=== PATIENT | male | born 1995 | race African-American/Black ===

== ENCOUNTER 2017-02-22 12:36 | Emergency (ER) | payer SELFPAY ==
[~2017-02-22] VITALS: Ht 172.7 cm; Wt 63.0 kg
[~2017-02-22 12:36] MED LIST: ALBU1AER INH; CEPH500 PO; CLIN150 PO; IBUP-238 PO; IBUP800 PO; PRED50 PO; Z.0.NO CURRENT MEDS
[2017-02-22 12:38] VITALS: BP 141/63; PULSE 72; RESP 15; TEMP 98.2; O2SAT 98
--- NOTE | 2017-02-22 12:48 | PD ---
Physical Exam Time Seen by Provider: 12:47 Narrative 21 y/o male with 3 days R sided facial swelling/dental pain. Vital signs reviewed. Seen at triage desk. Awaiting bed placement. Data Data Last Documented VS Vital Signs Date Time Temp Pulse Resp B/P Pulse Ox O2 Delivery O2 Flow Rate FiO2 02/22/17 12:38 98.2 72 15 141/63 98 MDM Medical Record Reviewed: Yes Supervised Visit with JERAD: Julio Woods Feb 22, 2017 12:48
--- NOTE | 2017-02-22 12:53 | PD ---
HPI Chief Complaint: Oral / Dental Pain or Problem Time Seen by Provider: 12:50 Travel History International Travel<30 days: No Contact w/Intl Traveler<30days: No Traveled to known affect area: No History of Present Illness HPI 21-year-old male presents to the ED for evaluation of 3 day history of right lower dental pain and facial swelling. Gradual onset. Patient endorses broken tooth 3 years in the area. Patient denies fever, chills, nausea, vomiting, difficulty swallowing his own secretions, sore throat, ear pain. He does not have a dentist. PFSH Past Medical History Asthma: Yes Immunizations Current: Yes Social History Alcohol Use: Yes Tobacco Use: Yes Substance Use: Yes (MARIJUANA) Allergies-Medications (Allergen,Severity, Reaction): Coded Allergies: No Known Allergies (Verified , 02/22/17) Reported Meds & Prescriptions Reported Meds & Active Scripts Active Ibuprofen 800 Mg Tab 800 Mg PO Q8H Penicillin V Potassium 500 Mg Tab 500 Mg PO Q6H 7 Days Review of Systems Except as stated in HPI: all other systems reviewed are Neg Physical Exam Narrative GENERAL: Well-nourished, well-developed nontoxic-appearing black male in no acute distress.. SKIN: Focused skin assessment warm/dry. Mild to moderate swelling and tenderness of the right lower anterior jaw. HEAD: Normocephalic. EYES: No scleral icterus. No injection or drainage. ENT: Pearly patel tympanic membranes bilaterally. Oropharynx without erythema, edema or exudate. DENTAL: Tooth #30 is broken to the gum. Just lateral to this is a large dental abscess. No pointing or drainage. NECK: Supple, trachea midline. No JVD or lymphadenopathy. CARDIOVASCULAR: Regular rate and rhythm without murmurs, gallops, or rubs. RESPIRATORY: Breath sounds equal bilaterally. No accessory muscle use. GASTROINTESTINAL: Abdomen soft, non-tender, nondistended. MUSCULOSKELETAL: No cyanosis, or edema. BACK: Nontender without obvious deformity. No CVA tenderness. Data Data Last Documented VS Vital Signs Date Time Temp Pulse Resp B/P Pulse Ox O2 Delivery O2 Flow Rate FiO2 02/22/17 12:38 98.2 72 15 141/63 98 Orders Ibuprofen (Motrin) (02/22/17 13:00) Penicillin V Potassium (Veetids) (02/22/17 13:00) Lidocaine 1% Inj (50 Ml) (Xylocaine 1% I (02/22/17 13:00) Abscess Culture And Gram Stain (02/22/17 12:53) MDM Medical Decision Making Medical Screen Exam Complete: Yes Emergency Medical Condition: Yes Differential Diagnosis Periodontal disease versus dental caries versus dental abscess versus other Narrative Course 21-year-old male presents to the ED for evaluation of 3 day history of right lower dental pain and facial swelling. Gradual onset. Patient endorses broken tooth 3 years in the area. Patient denies fever, chills, nausea, vomiting, difficulty swallowing his own secretions, sore throat, ear pain. He does not have a dentist. Vitals reviewed. Physical exam consistent with dental abscess. Abscess I&D was performed. Please see my procedure note for details. Patient was prescribed Pen-Vee K 500 mg 4 times a day, first dose administered in the ED. He is instructed to take the medication as prescribed and follow-up with the dentist. He was revived with a list of community dental resources. He is stable and discharged home. Procedures Procedure Narrative INCISION AND DRAINAGE OF ABSCESS: A subcutaneous wheal of 1 % Xylocaine with a total number 1 mL was used to anesthetize the area properly. A number 11 scalpel was used to make a 0.25-cm incision across the area of the abscess. The abscess was drained, complex loculations were broken down, and irrigated with normal saline. Cultures were obtained. Diagnosis Primary Impression: Dental abscess Referrals: Dentist Patient Instructions: Dental Abscess (ED), General Instructions Additional Instructions: Rest, hydrate. Take antibiotics as prescribed, even if your symptoms resolved. Ibuprofen every 8 hours as needed for pain. Warm salt water gargles may also help to improve your dental pain. Follow-up with the dentist. Return to the ED for worsening symptoms or any urgent or emergent medical condition. Med/Other Pt SpecificInfo: Prescription(s) given Scripts Ibuprofen 800 Mg [id number] Mg PO Q8H #15 TAB Ref 0 Prov:Wiliam Gaming MD 02/22/17 Penicillin V Potassium 500 Mg [id number] Mg PO Q6H 7 Days Ref 0 Prov:Wiliam Gaming MD 02/22/17 Disposition: 01 DISCHARGE HOME Condition: Stable Ninfa Quezada Feb 22, 2017 12:53
[2017-02-22] MEDS ORDERED: IBUP800T23 PO (12:55)
[2017-02-22] MEDS ORDERED: PENI500T PO (12:55)
[2017-02-22] MEDS ORDERED: LIDOCAINE HCL 1% 50 ML VIAL INFIL ONE (13:00)
[2017-02-22] MEDS ORDERED: PENICILLIN V POTASSIUM 500 MG TAB PO ONE (13:00)
[2017-02-22] MEDS ORDERED: IBUPROFEN 800 MG TAB PO ONE (13:00)
== END 2017-02-22 13:30 | disposition home or self-care (01) ==
LOC: NEPK 12:36
DX: K04.7 Periapical abscess without sinus (principal); Z72.0 Tobacco use; F12.90 Cannabis use, unspecified, uncomplicated; B95.5 Unspecified streptococcus as the cause of diseases classified elsewhere
CPT/HCPCS: 10060; 87070; 87077; 87185